=== PATIENT | female | born 1970 | race Caucasian/White ===

== ENCOUNTER 2017-04-04 17:45 | Emergency (ER) | payer BC ==
--- NOTE | 2017-04-04 18:00 | Emergency Department Record ---
History of Present Illness - General Chief Complaint: Chest Pain Stated Complaint: CHEST PAIN Time Seen by Provider: 04/04/17 17:59 Source: Patient Mode of Arrival: Ambulatory Limitations: No limitations - History of Present Illness Initial Comments: The patient is here due to chest pressure off and on for 2 weeks. The symptoms are intermittent and are not exertional and resolve spontaneously. She denies any SOB, ELOISA, sweating or nausea with the pressure. The symptoms last anywhere from 3-15 minutes at a time and have been slowly increasing over the last 2 weeks. Today they are more frequent. The patient had a similar episode 4 years ago and did have a heart catheterization and was told she had an 89% blockage. She did not receive a stent due to wanting a 2nd opinion and went to [facility] and was told she only had a 40% blockage and did not need a stent. 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 Complaint: Chest pain Onset/Timin -: Week(s) Onset: Awoke with symptoms Pain Location: Substernal Quality: Other Consistency: Intermittent Improves With: Nothing Worsens With: Nothing Treatments Prior to Arrival: None - Related Data Home Medications Medication Instructions Recorded Confirmed Last Taken Atorvastatin Calcium [Lipitor] 10 mg PO DAILY 04/04/17 04/04/17 04/04/17 Cholecalciferol (Vitamin D3) 5,000 unit PO DAILY 04/04/17 04/04/17 04/04/17 [Vitamin D3] Cyanocobalamin (Vitamin B-12) 1,000 mcg PO DAILY 04/04/17 04/04/17 04/04/17 [Vitamin B-12] Levothyroxine Sodium [Synthroid] 125 mcg PO DAILY 04/04/17 04/04/17 04/04/17 Mycophenolate Mofetil [Cellcept] 1,000 mg PO QAM 04/04/17 04/04/17 04/04/17 Mycophenolate Mofetil [Cellcept] 500 mg PO QHS 04/04/17 04/04/17 04/03/17 Tacrolimus [Prograf] 2 mg PO BID 04/04/17 04/04/17 04/04/17 Allergies Allergy/AdvReac Type Severity Reaction Status Date / Time sulfamethoxazole Allergy HIVES Verified 04/04/17 18:07 [From Bactrim] trimethoprim [From Bactrim] Allergy HIVES Verified 04/04/17 18:07 Travel Screening - Travel/Exposure Within Last 30 Days Have you traveled within the last 30 days?: No - Travel/Exposure Within Last Year Have you traveled outside the [place] 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% - NEURO Hx Neuro Disorders: No - GI Hx GI Disorders: No - Hx Genitourinary Disorders: Yes Hx Renal Disease: Yes - ENDOCRINE Hx Endocrine Disorders: Yes Hx Diabetes: Yes Hx Thyroid Disease: Yes (hypo) - MUSCULOSKELETAL Hx Musculoskeletal Disorders: No - PSYCH Hx Psych Problems: No - HEMATOLOGY/ONCOLOGY Hx Hematology/Oncology Disorders: Yes Hx Anemia: Yes Family Medical History Any Significant Family History?: No Hx Diabetes: Mother Hx Heart Disease: Mother Physical Exam - General General Appearance: Alert, Oriented x3, Cooperative, No acute distress - Head Head exam: Atraumatic, Normocephalic, Normal inspection - Eye Eye exam: Normal appearance, PERRL - Neck Neck exam: Normal inspection, Full ROM. negative: Tenderness - Respiratory Respiratory exam: Normal lung sounds bilaterally. negative: Respiratory distress - Cardiovascular Cardiovascular Exam: Regular rate, Normal rhythm, Normal heart sounds - GI/Abdominal GI/Abdominal exam: Soft, Normal bowel sounds. negative: Tenderness - Extremities Extremities exam: Normal inspection, Full ROM, Normal capillary refill. negative: Tenderness - Neurological Neurological exam: Alert, Normal gait, Oriented X3, Reflexes normal. negative: Motor sensory deficit Course Vital Signs 04/04/17 17:47 Temperature 98.4 F Pulse Rate 93 H Respiratory 20 Rate Blood Pressure 148/87 Pulse Ox 96 - Reevaluation(s) Reevaluation #1: The patient is doing very well at this time. Her mild chest pressure has resolved and she is pain free. 04/04/17 18:52 Reevaluation #2: The patient is doing very well at this time. She is pain free and is resting comfortably. I did discuss the plan with her to admit her to the hospital and she would like to go to [facility] [place]. I did discuss the case with DR. Willoughby at [facility] [place] and he does accept the patient to the hospital as a direct Admit. 04/04/17 19:03 Reevaluation #3: The patient is doing much better at this time. She is pain free and her HR is mid 80's. She presently does have a heparin drip going. 04/04/17 19:15 Medical Decision Making - Data Complexity MDM Data: Labs Ordered and/or Reviewed, X-Ray Ordered and/or Reviewed, EKG Ordered and/or Reviewed - Lab Data Result diagrams: 04/04/17 18:16 04/04/17 18:16 - EKG Data -: EKG Interpreted by [facility] EKG: No Acute Changes - Radiology Data Radiology results: Report reviewed (CXR: Neg.) Disposition Disposition: Transfer Clinical Impression: Unstable angina Disposition: Acute Care Hospital Transfer Transfer To: [facility] [place] Reason For Transfer: Unstable Angina Accepting Physician: Fartun Time Discussed w/Accepting Physician: 19:04 Condition: (2) Stable Forms: Patient Portal Access Time of Disposition: 19:04 Quality - Quality Measures Quality Measures: N/A - Blood Pressure Screening View Details: Yes Blood Pressure Classification: Pre-Hypertensive BP Reading Systolic Measurement: 148 Diastolic Measurement: 87 Screening for High Blood Pressure: < Pre-Hypertensive BP, F/U Documented > [ [id number]] Pre-Hypertensive Follow-up Interventions: Follow-up with rescreen every year.
[2017-04-04] MEDS ORDERED: ASPIRIN 325 MG TABLET PO ONE (18:13)
[2017-04-04 18:22] LABS: BASO % 0.3 % (0-6); EOS % 1.3 % (0-6); GRAN % 53.9 % (47-80); HEMATOCRIT 39.1 % (35.0-47.0); HEMOGLOBIN 12.8 gm/dl (11.6-16.0); LYMPH % 33.4 % (16-45); MEAN CELL VOLUME 84.3 fl (81-97); MEAN CORPUSCULAR HEMOGLOBIN 27.6 pg (27-33); MEAN CORPUSCULAR HGB CONC 32.7 g/dl (32-36); MONO % 11.1 % (0-9); PLATELET COUNT 326 K/uL (130-400); RED BLOOD COUNT 4.64 M/uL (3.80-5.40); RED CELL DISTRIBUTION WIDTH 14.6 % (11.5-14.5); WHITE BLOOD COUNT W/O DIFF 6.8 K/uL (4.2-12.2)
[2017-04-04 18:33] LABS: ANION GAP 12.3 (7-16); BLOOD UREA NITROGEN 15 mg/dL (7-17); CARBON DIOXIDE 24.7 mmol/L (22-30); CREATINE PHOSPHOKINASE 81 U/L (30-135); CREATININE 0.8 mg/dL (0.52-1.04); EST GLOMERULAR FILTRATION RATE > 60 ml/min; GLUCOSE,RANDOM 71 mg/dL (70-110)
[2017-04-04 18:35] LABS: INR 0.94; PROTHROMBIN TIME (PATIENT) 10.1 SECONDS (9.5-12.1)
[2017-04-04 18:46] LABS: CKMB 1.2 ug/L (0-6)
[2017-04-04 18:48] LABS: TROPONIN I 0.169 ng/mL (0.00-0.034)
[2017-04-04] MEDS ORDERED: HEPARIN SODIUM 1000 UNIT/1 ML 10ML VIAL IVP ONE (18:49)
[2017-04-04] MEDS ORDERED: HEPARIN SODIUM/D5W 25,000 UNITS/500 ML BAG IV SCH (19:00)
[2017-04-04] MEDS ORDERED: METOPROLOL TART 5 MG/5 ML VIAL IV ONE (19:07)
--- NOTE | 2017-04-05 08:58 | RADIOLOGY REPORT ---
EXAM: AP CHEST HISTORY: DIFFICULTY IN BREATHING, CHEST PRESSURE. TECHNIQUE: AP upright view of the chest was obtained. Comparison: PA chest 11/07/13. FINDINGS: The heart size is normal. The lungs appear expanded with no acute infiltrate identified. No pleural effusion or pneumothorax evident. Minor mid thoracic curve to the right as before. IMPRESSION: THE CHEST APPEARS ESSENTIALLY NEGATIVE WITH A MINOR MID THORACIC CURVE TO THE RIGHT. NO ACUTE INFILTRATE EVIDENT. JOB NUMBER: [id number] MTDD
== END 2017-04-04 19:35 | disposition short-term general hospital (02) ==
LOC: ER 17:45
DX: I20.0 Unstable angina (principal); I95.9 Hypotension, unspecified; E11.9 Type 2 diabetes mellitus without complications; R06.00 Dyspnea, unspecified; E03.9 Hypothyroidism, unspecified; Z94.0 Kidney transplant status
CPT/HCPCS: 71010; 80048; 82550; 82553; 84484; 85025; 85610; 85730; 93005; 93010; 96365; 96375; 99285